=== PATIENT | male | born 1995 | race Two or more races ===

== ENCOUNTER 2017-03-06 15:59 | Emergency (ER) | payer OTHER | END 2017-03-06 16:11 | disposition left against medical advice (07) | LOC: ED 15:59 | DX: Z53.21 Procedure and treatment not carried out due to patient leaving prior to being seen by health care provider (principal) ==

== ENCOUNTER 2019-01-09 19:43 | Emergency (ER) | payer BC | END 2019-01-09 20:06 | disposition left against medical advice (07) | LOC: ED 19:43 | DX: Z53.21 Procedure and treatment not carried out due to patient leaving prior to being seen by health care provider (principal) ==

== ENCOUNTER 2019-12-27 18:08 | Emergency (ER) | payer OTHER ==
[~2019-12-27] VITALS: Ht 182.9 cm; Wt 72.6 kg
[2019-12-27 18:11] VITALS: Ht 182.9 cm; Wt 72.6 kg
[2019-12-27 19:46] VITALS: BP 109/70
== END 2019-12-27 19:46 | disposition home or self-care (01) ==
LOC: ED 18:08
DX: T78.1XXA Other adverse food reactions, not elsewhere classified, initial encounter (principal); J45.909 Unspecified asthma, uncomplicated; X58.XXXA Exposure to other specified factors, initial encounter
CPT/HCPCS: J2930